=== PATIENT | female | born 1980 | race Caucasian/White ===

== ENCOUNTER → 2018-12-01 | Outpatient (REF) | payer OTHER | LOC: M LAB LCGH 17:38 | PROVIDERS: ATTEND Obstetrics & Gynecology | DX: Z12.4 Encounter for screening for malignant neoplasm of cervix (principal) ==

== ENCOUNTER → 2020-09-06 | Outpatient (CLI) | payer SELFPAY | LOC: M LABSMTC 10:24 | PROVIDERS: ATTEND Pediatrics | DX: Z20.822 Contact with and (suspected) exposure to COVID-19 (principal) ==

== ENCOUNTER → 2021-08-12 | Outpatient (CLI) | payer OTHER ==
[~2021-08-12] MED LIST: LIDOCAINE 1% MDV 20ML VIAL As Ordered ONE; methylPREDNISolone SUSP 40MG/ML 1ML VIAL (DEPO MEDROL) As Ordered ONE
--- NOTE | 2021-08-12 17:39 | REP ---
INDICATION: BICIPITAL TENDONITIS RIGHT SHOULDER. COMPARISON: None. TECHNIQUE: The procedure was performed by JOAQUIN Azul, under the direct supervision of Dr. Gonzalez. The risks and benefits of the procedure were explained to the patient and an informed consent was obtained both verbally and written. Directly prior to the start of the procedure a formal time-out was completed in the procedure room. The right bicipital groove was localized using ultrasound guidance. The skin was prepped and draped in a sterile fashion. Three mL of 1% lidocaine was used as a local anesthetic. Using ultrasound guidance a 25 gauge needle was inserted and advanced into the right bicipital groove. Once there a 3 cc solution containing 2 cc 1% lidocaine and 1 cc of Depo-Medrol 40 mg/mL was injected. The patient tolerated the procedure well and there were no immediate complications. After the appropriate amount of monitored convalescence the patient was discharged from the department. FINDINGS: The right bicipital groove was localized using ultrasound guidance. Skin was prepped and draped in sterile fashion. 3 mL of 1% lidocaine was utilized for local anesthetic. Using ultrasound guidance a 25 gauge needle was inserted and advanced into the right bicipital groove. Once there a 3 cc solution containing 2 cc 1% lidocaine and 1 cc of Depo-Medrol 40 mg/mL was injected. The needle was then removed and a sterile dressing was applied to the injection site. IMPRESSION: Successful ultrasound-guided right bicipital groove steroid injection. <Electronically signed by Bisi Valadez > 08/12/21 1245 <Electronically signed by Elder Gonzalez > 08/12/21 [id number]
== END ==
LOC: M IRPRO 11:21
PROVIDERS: ATTEND Physician Assistant Surgical
DX: M75.21 Bicipital tendinitis, right shoulder (principal)
CPT/HCPCS: 20550; 76942; J1030